=== PATIENT | female | born 2000 | race Caucasian/White ===

== ENCOUNTER → 2020-01-17 08:33 | Outpatient (CLI) | payer BC, SELFPAY ==
--- NOTE | ~2020-01-17 | US_ITS ---
US breast RT complete DATE: 01/17/2020 08:58 INDICATION: Painful lump in axillary tail area of right breast for one month TECHNIQUE: Real-time imaging of complete right breast including area of clinical complaint at axillar y tail COMPARISON: None FINDINGS: No suspicious solid lesion or any cyst or suspicious shadowing is detected. IMPRESSION: BI-RADS Category 1: Negative Reviewed, dictated and finalized at [facility]. Reviewed, dictated and finalized at [facility].
== END ==
PROVIDERS: Visit Provider Obstetrics & Gynecology
DX: N63.31 Unspecified lump in axillary tail of the right breast (principal)
CPT/HCPCS: 76641

== ENCOUNTER 2022-02-17 12:38 | Emergency (ER) | payer BC, SELFPAY ==
--- NOTE | ~2022-02-17 | XR_ITS ---
EXAMINATION: XR wrist LT min 3V DATE: 02/17/2022 13:07 INDICATION: Left wrist pain TECHNIQUE: Posteroanterior, ulnar deviation, oblique, and lateral views of the left wrist were obtain ed. COMPARISON: None available FINDINGS: There is mild swelling of the wrist. There is no fracture, dislocation, or subluxation. The bones and joint spaces are normal. IMPRESSION: 1. Mild wrist swelling without acute osseous abnormality. Reviewed, dictated and finalized at [facility].
[2022-02-17 12:45] VITALS: BP 123/61; PULSE 63; RESP 16; TEMP 37.3; O2SAT 100
--- NOTE | 2022-02-17 12:56 | ED.LOWEXIN ---
HPI - Extremity Injury (Lower) General Chief Complaint: Extremity Injury, Lower Stated Complaint: Left Wrist Injury Time Seen by Provider: 02/17/22 12:57 Source: patient and RN notes reviewed History of Present Illness HPI Narrative: Patient is a 21-year-old female who presents the urgent care with complaints of left wrist pain. Patient states she believes she hit it on something while building a fence yesterday and pressure washing. Patient states she is use a lot of ice but otherwise no [id number] pain medication. No other acute complaints. No acute distress noted. Patient aware of the plan of care. Some parts of this dictation were generated by voice recognition software and may contain typographical and/or grammatical inaccuracies. Related Data Home Medications Medication Instructions Recorded Confirmed bupropion HCl 150 mg PO DAILY 02/17/22 02/17/22 buspirone 5 mg PO DAILY 02/17/22 02/17/22 Allergies Allergy/AdvReac Type Severity Reaction Status Date / Time No Known Allergies Allergy Verified 02/17/22 12:53 Review of Systems Review of Systems: CONSTITUTIONAL: Denies fever, chills, or sweats. EYES: Denies visual changes, redness, or discharge. ENT: Denies rhinorrhea, congestion, sore throat, or otalgia. CARDIOVASCULAR: Denies chest pain, palpitations, or edema. RESPIRATORY: Denies cough or dyspnea. GASTROINTESTINAL: Denies abdominal pain, nausea, vomiting, or diarrhea. GENITOURINARY: Denies dysuria or hematuria. SKIN: Denies rash or itching. MUSCULOSKELETAL: Reports of left wrist pain and swelling NEUROLOGIC: Denies headache, numbness, or weakness. All other systems reviewed are negative, except as documented in HPI. PMFSH Comments At the time of my signature, I reviewed and agree with the nursing past medical, surgical, social, and family history. There is no relevant family history pertinent to the patient complaint. Exam Narrative: GENERAL: This is a well-nourished, well-developed patient, in no apparent distress. HEAD: normocephalic, atraumatic. EYES: PERRL. Sclera clear/white. Vision is grossly intact. EARS: External ears normal NOSE: External nose normal with no obvious nasal discharge, nares without redness, no rhinorrhea. THROAT: Mucous membranes moist NECK: Neck supple CARDIOVASCULAR: Regular rate and rhythm without murmurs, gallops, or rubs. RESPIRATORY: Clear to auscultation. Breath sounds equal bilaterally. No wheezes, rales, or rhonchi. SKIN: warm, intact with no suspicious lesions or rash, good texture and turgor. NEURO: awake, alert, and oriented to person, place and time. There were no obvious focal neurologic abnormalities. EXTREMITIES: Mild edema noted to the left ulna with moderate tenderness. Exacerbated pain on rotation of the left upper extremity. Positive strong left radial pulse with capillary refill less than 2 seconds. Course Course Level of Care: Express Care Visit Vital Signs Vital signs: Vital Signs Temperature 99.1 F 02/17/22 12:45 Pulse Rate 63 02/17/22 12:45 Respiratory Rate 16 02/17/22 12:45 Blood Pressure 123/61 02/17/22 12:45 Pulse Oximetry 100 02/17/22 12:45 Temperature 99.1 F 02/17/22 12:45 Pulse Rate 63 02/17/22 12:45 Respiratory Rate 16 02/17/22 12:45 Blood Pressure 123/61 02/17/22 12:45 Pulse Oximetry 100 02/17/22 12:45 Reviewed MDM - Extremity Injury (Lower) MDM Narrative Medical decision making narrative: Reviewed x-ray results with the patient. She is aware that there is no fracture or dislocation. There is likely a bone contusion to the rest. Continue Tylenol/ibuprofen and ice. May use an Terrence wrap as needed for comfort and support. Avoid any strenuous activity such as heavy lifting/pushing/pulling. Follow-up with your PCP within 2 to 5 days or for worsening symptoms or failure to improve. Differential Diagnosis Differential diagnosis: Likely ankle sprain and strain, acute internal derangement of knee, fractur
--- NOTE | 2022-02-17 13:16 | PC.NURSE ---
PT DECLINED ICE FOR COMFORT
== END 2022-02-17 13:22 | disposition home or self-care (01) ==
PROVIDERS: Emergency Provider Nurse Practitioner Family
DX: S60.212A Contusion of left wrist, initial encounter (principal); W22.8XXA Striking against or struck by other objects, initial encounter; F41.9 Anxiety disorder, unspecified; F32.A Depression, unspecified
CPT/HCPCS: 73110; 99203; G0463